=== PATIENT | male | born 1980 | race Caucasian/White ===

== ENCOUNTER 2023-07-09 04:42 | Outpatient (CLI) | payer OTHER, SELFPAY ==
[2023-07-09 22:26] LABS: PSA, Screening 1.2 ng/mL (<=2.5)
== END 2023-07-09 04:43 | disposition home or self-care (01) ==
LOC: LBO 04:43
PROVIDERS: PCP Family Medicine; Referring Provider Family Medicine; Visit Provider Family Medicine
DX: Z80.42 Family history of malignant neoplasm of prostate (principal)
CPT/HCPCS: 36415; 84153

== ENCOUNTER 2024-06-27 14:29 | Outpatient (CLI) | payer OTHER, SELFPAY ==
--- NOTE | 2024-06-27 15:03 | DI.RAD_ITS ---
Exam(s) XR FOOT RT COMPLETE EXAM: XR FOOT RT COMPLETE CLINICAL HISTORY: M79.674 Pain Rt toe(s), RT great tow MTP jnt pain, known minor trauma. TECHNIQUE: 2D digital imaging was performed. Three views. COMPARISON: No exams were available for comparison FINDINGS: BONES: No acute fracture is present. No bony destructive lesion is seen. Plantar calcaneal spur. JOINTS: No dislocation present. Minimal spurring at 1st MTP joint. Joint space is maintained. SOFT TISSUE: Normal. IMPRESSION: No acute abnormality. DATA REPOSITORY: RADIATION DOSE DELIVERED:
== END 2024-06-27 14:49 ==
LOC: DI 14:29
PROVIDERS: PCP Family Medicine; Visit Provider Nurse Practitioner Family
DX: M79.674 Pain in right toe(s) (principal)
CPT/HCPCS: 73630

== ENCOUNTER 2024-06-27 16:49 | Outpatient (REF) | payer OTHER, SELFPAY ==
[2024-06-27 21:08] LABS: Uric Acid 6.3 mg/dL (3.5-7.2)
== END 2024-06-27 16:50 | disposition home or self-care (01) ==
LOC: LBN 16:49
PROVIDERS: PCP Family Medicine; Visit Provider Nurse Practitioner Family
DX: M79.674 Pain in right toe(s) (principal)
CPT/HCPCS: 84550

== ENCOUNTER 2024-08-16 14:50 | Outpatient (CLI) | payer OTHER, SELFPAY ==
[2024-08-16 23:16] LABS: PSA, Screening 1.7 ng/mL (<=2.5)
== END 2024-08-16 14:51 | disposition home or self-care (01) ==
LOC: LBO 14:51
PROVIDERS: PCP Family Medicine; Visit Provider Family Medicine
DX: Z80.42 Family history of malignant neoplasm of prostate (principal); I10 Essential (primary) hypertension; M10.9 Gout, unspecified
CPT/HCPCS: 36415; 84153

== ENCOUNTER 2025-01-25 14:06 | Outpatient (CLI) | payer OTHER, SELFPAY ==
--- NOTE | 2025-01-25 10:00 | DI.US_ITS ---
APPROVED REPORT EXAM: Comprehensive 2D, Doppler, and color-flow Echocardiogram Patient Location: Out-Patient Floor Coverings Salesperson: Kelly Chacon RDCS (AE) Indications: ROCKWE[place], Resistant Hypertension, Exertional dyspnea Other Information Study Quality: Adequate. Technically limited study due to body habitus. Conclusion Normal left ventricular wall thickness and chamber size. Ejection fraction is 55%. Wall motion is normal Normal right ventricular size and function Both atria are normal in size There is no structural or hemodynamically significant valvular disease Ascending aorta measures 4.16 cm Wall motion Left Ventricle The left ventricle is normal size. The left ventricular systolic function is normal. The left ventricular ejection fraction is within the normal range. There is normal left ventricular wall thickness. There is normal LV segmental wall motion. There is no ventricular septal defect visualized. LVEF is 55%. Right Ventricle Right ventricle is grossly normal in size. Right ventricular systolic function is grossly normal. Atria The left atrium size is normal. The right atrium size is normal. Aortic Valve The aortic valve is normal in structure. Aortic valve is trileaflet. There is no aortic valvular stenosis. No aortic regurgitation is present. Mitral Valve The mitral valve is normal in structure. No evidence of mitral valve stenosis. Trace mitral regurgitation. Tricuspid Valve The tricuspid valve is normal in structure. There is no tricuspid valve stenosis. Trace tricuspid regurgitation. Unable to assess PA pressure. Pulmonic Valve The pulmonary valve is normal in structure. There is no pulmonic valvular stenosis. There is no pulmonic valvular regurgitation. Great Vessels The aortic root is normal in size. The ascending aorta is moderately dilated. Aortic arch is not well visualized. IVC is normal in size and collapses >50% with inspiration. Pericardium There is no pericardial effusion. 2D Dimensions IVSD d PLAX 1.11 cm M: 0.6-1.2 Ao Root d 3.36 cm M: 3.1 - 3.7 LVPW d PLAX 1.10 cm M: 0.6 - 1.2 Ao Asc Diam d 4.16 cm M: 2.6 - 3.4 LVID d PLAX 5.61 cm M: 4.2 - 5.8 LVDs 3.80 cm M: 2.5 - 4.0 LV EF Teichholz 59.8 % FS 32.26 % LV EDV (Teich) 154.0 mL LV ESV (Teich) 61.8 mL M-Mode TAPSE 1.91 cm (M/F) >1.7 Auto EF LV EDV A4C 173.0 mL LV EDV A2C 174.4 mL LV EDV BP 176.1 mL LV ESV A4C 86.9 mL LV ESV A2C 79.2 mL LV ESV BP 85.0 mL LVEF(%) A4C 49.8 % LVEF(%) A2C 54.6 % LVEF(%) BP 51.7 % LV SV A4C 86.2 ml LV SV A2C 95.2 ml LV SV BP 91.1 ml LV CO A4C 5.0 L/min LV CO A2C 6.2 L/min LV CO BP 5.6 L/min HR A4C 58.33 BPM HR A2C 64.87 BPM LV EDV Index (BP) LA Volume LA Length A4C 4.9 cm LA Length A2C 5.6 cm LA Area A4C s 18.33 cm2 LA Area A2C s 21.89 cm2 LA Vol A4C A-L 57.96 mL LA Vol A2C A-L 73.09 mL LA Vol Biplane A-L 69.2 mL LA Vol/BSA A4C A-L LA Vol/BSA A2C A-L LA Vol/BSA BP A-L 28.0 mL/m2 LA Vol A4C MOD 54.7 mL LA Vol A2C MOD 69.1 mL LA Vol BP MOD 65.2 mL RA Volume RA Area A4C 15.7 cm2 RA ESV A4C (A-L) 40.7mL RA Vol/BSA A4C A-L RA Length A4C 5.1 cm RA ESV A4C (MOD) 38.5mL LV Diastology MV E' medial 0.097 (>0.07 m/s) MV E Vmax 0.61 (0.4-1.3 m/s) MV E/E' MED 6.28 (<14) MV A Vmax 0.85 (0.4-1.3 m/s) MV E' lateral 0.097 (>0.1 m/s) E/A Ratio 0.7 MV E/E' LAT 6.28 (<14) MV E' Average 0.097 m/s MV E/E'(average) 6.28 Aortic Valve AoV Vmax 1.32 m/s LVOT Vmax 1.20 m/s AoV Peak Grad 7.0 mmHg LVOT Peak Grad 5.8 mmHg AoV Area (Vmax) 3.26 cm2 LVOT VTI 0.244 m AoV VTI 0.282 m LVOT Mean Grad 3.2 mmHg AoV Mean Kervin. 0.96 m/s LVOT SV 87.74 mL AoV Mean Grad 4.2 mmHg LVOT Diam s 2.10 cm AoV Area (VTI) 3.11 cm2 AV Regurg Peak Gr. 7.01 mmHg Velocity Ratio 0.91 Mitral Valve MV DT 244 (160-240 msec) MV Vmax TIPS 0.74 m/s MV Mean Grad 0.9 (<2mmHg) MV VTI 0.253 m Pulmonary Valve PV Vmax 1.03 (0.5-1.5 m/s) RVOT Vmax 0.72 m/s PV Peak Grad 4.2 mmHg RVOT Peak Gr. 2.1 mmHg PV Mean Kervin 0.71 m/s RVOT VTI 0.152 m PV Mean Grad 2.3 mmHg RVOT Mean Gr. 1.1 mmHg Tricuspid Valve TV S' 0.18 m/s
== END 2025-01-25 14:26 ==
LOC: DI 14:07
PROVIDERS: PCP Family Medicine; Visit Provider Internal Medicine Cardiovascular Disease
DX: R06.09 Other forms of dyspnea (principal)
CPT/HCPCS: 93306

== ENCOUNTER 2025-03-28 01:20 | Outpatient (CLI) | payer OTHER, SELFPAY ==
[2025-03-28 08:35] LABS: Albumin 3.8 g/dL (3.4-5.0); Alkaline Phosphatase 88 U/L (46-116); Anion Gap 10.0 mmol/L (3-11); BUN 20 mg/dL (7-18); Bilirubin, Total 0.9 mg/dL (0.2-1.0); CO2 27.0 mmol/L (21.0-32.0); Calcium 8.7 mg/dL (8.5-10.1); Chloride 103 mmol/L (98-107); Cholesterol 220 mg/dL (<200); Glucose 128 mg/dL (74-106); HDL Cholesterol 25 mg/dL (>or=40); Potassium 4.1 mmol/L (3.5-5.1); Sodium 140 mmol/L (136-145); TSH (W/Ref FT4) 2.90 uIU/mL (0.36-3.74); Total Protein 7.4 g/dL (6.4-8.2)
[2025-03-28 09:07] LABS: AST 16 U/L (15-37)
[2025-03-28 09:18] LABS: ALT 23 U/L (16-63)
[2025-04-02 18:46] LABS: Renin Activity, Plasma 10 ng/mL/h
== END 2025-03-28 01:21 | disposition home or self-care (01) ==
PROVIDERS: PCP Family Medicine; Referring Provider Family Medicine; Visit Provider Family Medicine
DX: I10 Essential (primary) hypertension (principal)
CPT/HCPCS: 36415; 80053; 80061; 83721; 82088; 84244; 84443